=== PATIENT | male | born 1960 | race Caucasian/White ===

== ENCOUNTER 2018-07-19 12:53 | Observation (INO) ==
[2018-07-19] MEDS ORDERED: ACETAMINOPHEN 500 MG TABLET PO STA (14:33)
[2018-07-19] MEDS ORDERED: ACETAMINOPHEN 500 MG TABLET ONE (14:34)
[2018-07-19] MEDS ORDERED: ONDANSETRON 4 MG/2 ML VIAL IV PRN (15:21)
[2018-07-19] MEDS ORDERED: MAGNESIUM SULF RIDER 2 GM in PREMIX 1 EACH IV PRN (15:21)
[2018-07-19] MEDS ORDERED: ACETAMINOPHEN 325 MG TABLET PO PRN (15:21)
[2018-07-19] MEDS ORDERED: ALUM/MAG/SIMETH/LIDO VISC 1:1 30 ML BOTTLE PO PRN (15:21)
[2018-07-19] MEDS ORDERED: NICOTINE 21 MG/24 HR PATCH TRANSDERM PRN (15:21)
[2018-07-19] MEDS ORDERED: POTASSIUM CHLORIDE 20 MEQ TABLET PO PRN ×2 (15:21)
[2018-07-19] MEDS: LISINOPRIL 20 MG TABLET PO SCH (17:00)
[2018-07-19 17:08] LABS: Basophils # 0.1 10*3/uL (0.0-0.2); Basophils % 0.9 % (0.0-0.8); Eosinophils # 0.3 10*3/uL (0.0-0.87); Eosinophils % 4.5 % (0.00-10.9); Hematocrit 47.5 VOL% (42.0-52.0); Hemoglobin 16.2 GM/DL (14.0-18.0); Immature Granulocytes % 0.3 %; Immature Granulocytes Absolute 0.02 #; Lymphocytes # 2.3 10*3/uL (1.4-4.0); Mean Corpuscular HGB Conc 34.1 GM/DL (32-36); Mean Corpuscular Hemoglobin 34 PG (27-34); Mean Corpuscular Volume 98.1 FL (87-102); Mean Platelet Volume 9.6 FL (9.6-12.0); Monocytes # 0.7 10*3/uL (0.11-0.8); Monocytes % 10.1 % (1.7-12.7); Neutrophils # 3.1 10*3/uL (1.4-7.4); Neutrophils % 48.2 % (38.7-73.9); Platelet Count 156 T/CUMM (130-400); Red Blood Count 4.84 MC/CUMM (3.8-5.5); Red Cell Distribution Width 12.8 % (9.3-17.3); White Blood Count 6.4 T/CUMM (4-12)
[2018-07-19 17:26] LABS: Calcium 8.8 MG/DL (8.5-10.1); Osmolality,Calculated 275.5 MOS/KG (273-304)
[2018-07-19] MEDS ORDERED: MORPHINE 4 MG/1 ML VIAL IV ONE (20:36)
[2018-07-19] MEDS ORDERED: MORPHINE 4 MG/1 ML VIAL IV PRN (20:38)
[2018-07-20] MEDS: ENOXAPARIN 120 MG/0.8 ML SYRINGE SUBCUT SCH ×2 (00:15→11:46)
[2018-07-20 04:36] LABS: Basophils # 0.1 10*3/uL (0.0-0.2); Eosinophils # 0.3 10*3/uL (0.0-0.87); Eosinophils % 5.4 % (0.00-10.9); Hematocrit 44.7 VOL% (42.0-52.0); Hemoglobin 15.2 GM/DL (14.0-18.0); Immature Granulocytes % 0.2 %; Immature Granulocytes Absolute 0.01 #; Lymphocytes # 2.3 10*3/uL (1.4-4.0); Lymphocytes % 39.2 % (21.2-54.2); Mean Corpuscular Hemoglobin 33 PG (27-34); Mean Corpuscular Volume 97.6 FL (87-102); Mean Platelet Volume 9.4 FL (9.6-12.0); Monocytes # 0.7 10*3/uL (0.11-0.8); Monocytes % 11.1 % (1.7-12.7); Neutrophils # 2.6 10*3/uL (1.4-7.4); Neutrophils % 43.1 % (38.7-73.9); Platelet Count 152 T/CUMM (130-400); Red Blood Count 4.58 MC/CUMM (3.8-5.5); Red Cell Distribution Width 12.8 % (9.3-17.3); White Blood Count 5.9 T/CUMM (4-12)
[2018-07-20 05:03] LABS: Calcium 8.5 MG/DL (8.5-10.1); Osmolality,Calculated 277.4 MOS/KG (273-304); Potassium 3.9 MMOL/L (3.5-5.1); Risk Ratio 5.44; VLDL CHOLESTEROL 51.4 MG/DL
[2018-07-20] MEDS ORDERED: PANTOPRAZOLE 40 MG TABLET PO SCH (09:00)
[2018-07-20] MEDS: LISINOPRIL 20 MG TABLET PO SCH (11:46)
[2018-07-20] MEDS ORDERED: ACETAMINOPHEN 325 MG TABLET PO SCH (12:00)
[2018-07-20 12:12] VITALS: BP 125/76
[2018-07-20] MEDS ORDERED: GABAPENTIN 100 MG CAPSULE PO SCH (15:00)
[2018-07-20] MEDS ORDERED: SERTRALINE 25 MG TABLET PO SCH (21:00)
[2018-07-20] MEDS ORDERED: ATORVASTATIN 20 MG TABLET PO SCH (21:00)
== END 2018-07-20 15:24 | disposition home or self-care (01) ==
LOC: N.EDINP 12:53 → N.ED 12:53 → N.TELES 15:54
PROVIDERS: ADMIT Internal Medicine; ATTEND Internal Medicine